=== PATIENT | male | born 1960 | race Caucasian/White ===

== ENCOUNTER 2017-12-11 22:47 | Emergency (ER) | payer BC, OTHER ==
[~2017-12-11] VITALS: Ht 177.8 cm; Wt 95.5 kg
[2017-12-11 22:50] VITALS: TEMP 36.9; Ht 177.8 cm; Wt 95.5 kg
[2017-12-11] MEDS ORDERED: KETOROLAC TROMETHAMINE 30 MG/ML VIAL IV STA (23:04)
[2017-12-11] MEDS ORDERED: HYDROmorphone INJ 1 MG/ML SYR IV STA (23:04)
[2017-12-11] MEDS ORDERED: SODIUM CHLORIDE 0.9% 1000ML 1,000 ML IV STA (23:04)
[2017-12-11] MEDS ORDERED: METOCLOPRAMIDE HCL INJ 5 MG/ML 2 ML VIAL IV STA (23:04)
--- NOTE | 2017-12-11 23:06 | EMERGENCY ROOM VISIT NOTE ---
History Report prepared by Braulio: Pat Yen Under the Supervision of: Dr. Andriy Barrett M.D. First contact with patient: 22:57 Chief Complaint: ABDOMINAL PAIN Stated Complaint: PAIN STOMACH History of Present Illness The patient is a 57 year old male who presents to the Emergency Room with complaints of waxing and waning abdominal pain that started 3 hours ago. The patient rates his pain a 10/10 in severity. The patient reports he ate dinner and then him and his went for a walk. He states 15-20 minutes into the walk he started feeling abdominal pain and had to stop walking. The patient had diarrhea, nausea, and vomiting. He reports there was no blood in his stool. He also states he is having back pain. He denies having any abdominal surgery in the past. The patient reports he had similar symptoms 3 months ago but the pain was gone after 15-20 minutes. Source of History: patient Onset: 3 hours ago Position: abdomen Symptom Intensity: 10/10 Timing: waxes/wanes Associated Symptoms: + nausea, + vomiting, + back pain, + diarrhea Review of Systems See HPI for pertinent positives & negatives. A total of 10 systems reviewed and were otherwise negative. Past Medical & Surgical Hypertension. Family History No pertinent family history Social History Smoking Status: Never Smoker Smokeless Tobacco Use: No Drug Use: none Marital Status: Housing Status: lives with significant other Current/Historical Medications Scheduled Amoxicillin & Pot Clavulanate (Augmentin 875-125 mg), 1 TAB PO BID Lisinopril/Hctz (Prinzide 20-25MG), 0.5 TAB PO DAILY Scheduled PRN Oxycodone Ir (Roxicodone Ir), 1-2 TAB PO Q4H PRN for Severe Pain Allergies Coded Allergies: No Known Allergies (Unverified , 12/12/17) Physical Exam Vital Signs Date Time Temp Pulse Resp B/P (MAP) Pulse Ox O2 Delivery O2 Flow Rate FiO2 12/12/17 03:28 67 18 152/91 98 Room Air 12/12/17 03:06 70 20 146/81 98 Room Air 12/12/17 01:29 68 18 142/88 99 Room Air 12/11/17 23:57 75 20 159/89 98 Room Air 12/11/17 22:50 36.9 66 16 204/103 Room Air Physical Exam GENERAL: Awake, alert, uncomfortable appearing, in no acute distress HENT: Normocephalic, atraumatic. Oropharynx unremarkable. EYES: Normal conjunctiva. Sclera non-icteric. NECK: Supple. No nuchal rigidity. FROM. No JVD. RESPIRATORY: Clear to auscultation. CARDIAC: Regular rate, normal rhythm. Extremities warm and well perfused. Pulses equal. ABDOMEN: Soft, non-distended. No tenderness to palpation. No rebound or guarding. No masses. RECTAL: Deferred. MUSCULOSKELETAL: Chest examination reveals no tenderness. The back is symmetrical on inspection without obvious abnormality. There is no CVA tenderness to palpation. No joint edema. LOWER EXTREMITIES: Calves are equal size bilaterally and non-tender. No edema. No discoloration. NEURO: Normal sensorium. No sensory or motor deficits noted. SKIN: No rash or jaundice noted. Medical Decision & Procedures ER Provider Diagnostic Interpretation: 1 VIEW CHEST X-RAY interpreted by me: No evidence of pneumonia, pneumothorax, or congestion. US RUQ: No cholelithiasis. Negative sonographic Landa sign. No gallbladder wall thickening or biliary dilation. Gallbladder wall polyp measuring 3 mm incidentally noted. Fatty infiltration of the liver without hepatomegaly. No hydronephrosis of the right kidney. Presumed cortical cysts. Parenchymal calcification measuring 2-3 mm incidentally noted. Visualized pancreas within normal limits. CT abd & Pelvis There is scattered diverticula noted in the sigmoid colon with minimal wall thickening. This may be due to incomplete distention. Subtle diverticulitis or colitis in this region is difficult to entirely exclude. The appendix is normal. No evidence for bowel obstruction. No free fluid. There is a 2 x 2 centimeter hypoattenuating structure involving the medial aspect of the mid left kidney which is not definitive for cysts. There is presumed incidental finding. However nonemergent renal ultrasound or dedicated multiphasic cross- sectional imaging is recommended to exclude underlying solid mass lesion in this region. The liver, decompressed gallbladder, pancreas, spleen, adrenal glands are unremarkable. The gallbladder wall polyp noted on previous ultrasound is not appreciated by CT examination. Laboratory Results 12/11/17 23:26 Red Blood Count 4.36, Mean Corpuscular Volume 90.4, Mean Corpuscular Hemoglobin 31.7, Mean Corpuscular Hemoglobin Concent 35.0, Mean Platelet Volume 10.1, Neutrophils (%) (Auto) 85.4, Lymphocytes (%) (Auto) 6.7, Monocytes (%) (Auto) 7.4, Eosinophils (%) (Auto) 0.2, Basophils (%) (Auto) 0.1, Neutrophils # (Auto) 8.22, Lymphocytes # (Auto) 0.65, Monocytes # (Auto) 0.71, Eosinophils # (Auto) 0.02, Basophils # (Auto) 0.01 12/11/17 23:26 Test 12/11/17 23:26 White Blood Count 9.63 K/uL (4.8-10.8) Red Blood Count 4.36 M/uL (4.7-6.1) Hemoglobin 13.8 g/dL (14.0-18.0) Hematocrit 39.4 % (42-52) Mean Corpuscular Volume 90.4 fL (80-100) Mean Corpuscular Hemoglobin 31.7 pg (25-34) Mean Corpuscular Hemoglobin Concent 35.0 g/dl (32-36) Platelet Count 153 K/uL (130-400) Mean Platelet Volume 10.1 fL (7.4-10.4) Neutrophils (%) (Auto) 85.4 % Lymphocytes (%) (Auto) 6.7 % Monocytes (%) (Auto) 7.4 % Eosinophils (%) (Auto) 0.2 % Basophils (%) (Auto) 0.1 % Neutrophils # (Auto) 8.22 K/uL (1.4-6.5) Lymphocytes # (Auto) 0.65 K/uL (1.2-3.4) Monocytes # (Auto) 0.71 K/uL (0.11-0.59) Eosinophils # (Auto) 0.02 K/uL (0-0.5) Basophils # (Auto) 0.01 K/uL (0-0.2) RDW Standard Deviation 41.0 fL (36.4-46.3) RDW Coefficient of Variation 12.4 % (11.5-14.5) Immature Granulocyte % (Auto) 0.2 % Immature Granulocyte # (Auto) 0.02 K/uL (0.00-0.02) Urine Color YELLOW Urine Appearance CLEAR (CLEAR) Urine pH 7.5 (4.5-7.5) Urine Specific [place] 1.017 (1.000-1.030) Urine Protein NEG (NEG) Urine Glucose (UA) NEG (NEG) Urine Ketones NEG (NEG) Urine Occult Blood NEG (NEG) Urine Nitrite NEG (NEG) Urine Bilirubin NEG (NEG) Urine Urobilinogen NEG (NEG) Urine Leukocyte Esterase NEG (NEG) Anion Gap 7.0 mmol/L (3-11) Est Creatinine Clear Calc Drug Dose 106.1 ml/min Estimated GFR () 109.7 Estimated GFR (Non- 94.7 BUN/Creatinine Ratio 22.0 (10-20) Calcium Level 8.5 mg/dl (8.5-10.1) Total Bilirubin 0.4 mg/dl (0.2-1) Direct Bilirubin mg/dl (0-0.2) Aspartate Amino Transf (AST/SGOT) 20 U/L (15-37) Alanine Aminotransferase (ALT/SGPT) 20 U/L (12-78) Alkaline Phosphatase 63 U/L (45-117) Total Protein 7.8 gm/dl (6.4-8.2) Albumin 3.8 gm/dl (3.4-5.0) Lipase 143 U/L (73-393) Chemistry Specimen Hemolysis Labs reviewed by ED physician. Medications Administered Medications (Trade) Dose Ordered Sig/Noe Route Start Time Stop Time Status Last Admin Dose Admin Sodium Chloride 1,000 ml @ 999 mls/hr Q1H1M STAT IV 12/11/17 23:04 12/12/17 00:04 DC 12/11/17 23:24 999 MLS/HR Metoclopramide HCl (Reglan Inj) 10 mg NOW STAT IV 12/11/17 23:04 12/11/17 23:07 DC 12/11/17 23:23 10 MG Hydromorphone HCl (Dilaudid Inj) 1 mg NOW STAT IV 12/11/17 23:04 12/11/17 23:07 DC 12/11/17 23:23 1 MG Ketorolac Tromethamine (Toradol Inj) 30 mg NOW STAT IV 12/11/17 23:04 12/11/17 23:07 DC 12/11/17 23:23 30 MG Miscellaneous Medication (Gi Cocktail) 24 ml NOW STAT PO 12/12/17 00:32 12/12/17 00:34 DC 12/12/17 00:32 24 ML Famotidine (Pepcid Tab) 20 mg NOW STAT PO 12/12/17 00:32 12/12/17 00:34 DC 12/12/17 00:51 20 MG Sucralfate (Carafate Tab) 1 gm NOW ONCE PO 12/12/17 00:45 12/12/17 00:46 DC 12/12/17 00:51 1 GM Lidocaine HCl (Viscous Lidocaine 2% Soln) 20 ml STK-MED ONCE .ROUTE 12/12/17 00:47 12/12/17 00:48 DC 12/12/17 00:50 20 ML Al Hydroxide/Mg Hydroxide (Maalox Susp) 30 ml STK-MED ONCE .ROUTE 12/12/17 00:47 12/12/17 00:48 DC 12/12/17 00:50 30 ML ECG Per My Interpretation Indication: abdominal pain Rate (beats per minute): 65 Rhythm: normal sinus Findings: other (no ST elevation or depression, normal EKG) ED Course 2256: Past medical records reviewed. The patient was evaluated in room C4. A complete history and physical examination was performed. 2304: Toradol Inj 30 mg IV, Dilaudid Inj 1 mg IV, Reglan Inj 10 mg IV, Sodium Chloride 1000 ml @ 999 mls/hr IV. 0032: Pepcid Tab 20 mg PO, Gi cocktail 24 ml PO. 0045: Carafate Tab 1 gm PO. 0047: Maalox Susp 30 ml .ROUTE, Lidocaine HCl 20 ml .ROUTE. Medical Decision Differential diagnosis: Etiologies such as appendicitis, diverticulitis, PUD, biliary pathology, UTI, pancreatitis, obstruction, mesenteric ischemia, aortic pathology, infections, inflammatory bowel disease, renal colic, as well as others were entertained. This is a 57-year-old male who presents the emergency department complaining of abdominal pain. Patient appears acutely uncomfortable. The pain started after he ate this evening. He was given Dilaudid, normal saline bolus Toradol and Zofran. Serial abdominal examinations were performed and the patient in the emergency department and at no time to the patient exhibited a surgical abdomen. Patient was sent for chest x-ray as well as a right upper quadrant ultrasound however this did not show any evidence of acute process. In addition the patient has a normal CBC renal profile liver profile normal lipase. He also has a normal urine. Patient was given a GI cocktail, Pepcid and Carafate. Using shared medical decision making with the patient using all the above laboratory work along with his ultrasound and physical examinations the patient and his would like to proceed with a CAT scan of the abdomen and pelvis. This was concerning for an early diverticulitis therefore placed the patient on Augmentin. In the meantime I recommended the patient have a clear liquid diet for the next 48 hours and also in a 5 mL's of Maalox before every meal and at bedtime. I also strongly recommended that the patient follow- up with his PCP for this kidney cyst. I also strongly recommended that the patient obtain a colonoscopy from gastroenterology. Both patient and are in agreement with the treatment plan. Medication Reconcilliation Current Medication List: was personally reviewed by me Impression Primary Impression: Abdominal pain Additional Impressions: Diverticulitis Kidney cysts Scribe Attestation The scribe's documentation has been prepared under my direction and personally reviewed by me in its entirety. I confirm that the note above accurately reflects all work, treatment, procedures, and medical decision making performed by me. Departure Information Dispostion Home / Self-Care Prescriptions Oxycodone Ir (Roxicodone Ir) 5 Mg Tab 1-2 TAB PO Q4H Y for Severe Pain, #12 TAB Prov: Andriy Barrett MD 12/12/17 Amoxicillin & Pot Clavulanate (Augmentin 875-125 mg) 1 Tab Tab 1 TAB PO BID for 10 Days, #20 TAB Prov: Andriy Barrett MD 12/12/17 Referrals No Doctor, Assigned (PCP) Patient Instructions My [facility] Problem Qualifiers Primary Impression: Abdominal pain Abdominal location: unspecified location Qualified Codes: R10.9 - Unspecified abdominal pain
[2017-12-11 23:40] LABS: BASO % 0.1 %; BASO ABS # 0.01 K/uL (0-0.2); EOS % 0.2 %; EOS ABS # 0.02 K/uL (0-0.5); HEMATOCRIT 39.4 % (42-52); HEMOGLOBIN 13.8 g/dL (14.0-18.0); IG# 0.02 K/uL (0.00-0.02); LYMPH % 6.7 %; LYMPH ABS # 0.65 K/uL (1.2-3.4); MEAN CELL VOLUME 90.4 fL (80-100); MEAN CORPUSCULAR HEMOGLOBIN 31.7 pg (25-34); MEAN PLATELET VOLUME 10.1 fL (7.4-10.4); MONO % 7.4 %; MONO ABS # 0.71 K/uL (0.11-0.59); NEUT % 85.4 %; NEUT ABS # 8.22 K/uL (1.4-6.5); PLATELET COUNT 153 K/uL (130-400); RED CELL DISTRIBUTION WIDTH CV 12.4 % (11.5-14.5); WHITE BLOOD COUNT 9.63 K/uL (4.8-10.8)
[2017-12-12 00:14] LABS: ALBUMIN 3.8 gm/dl (3.4-5.0); CALCIUM 8.5 mg/dl (8.5-10.1); CREATININE 0.88 mg/dl (0.60-1.40); POTASSIUM 3.8 mmol/L (3.5-5.1); TOTAL PROTEIN 7.8 gm/dl (6.4-8.2)
[2017-12-12] MEDS ORDERED: LISI20TA55 PO (00:28)
[2017-12-12] MEDS ORDERED: FAMOTIDINE 20 MG TAB PO STA (00:32)
[2017-12-12] MEDS ORDERED: GI COCKTAIL PO STA (00:32)
[2017-12-12] MEDS ORDERED: SUCRALFATE 1 GM TAB PO ONE (00:45)
[2017-12-12] MEDS ORDERED: ALUMINUM/MAGNESIUM SUSP 30 ML UDC ONE (00:47)
[2017-12-12] MEDS ORDERED: LIDOCAINE HCL 2% VISC SOLN 20 ML UDC ONE (00:47)
[2017-12-12] MEDS ORDERED: OPTIRAY 320 IV PRN (01:00)
[2017-12-12] MEDS ORDERED: AMOXICILLIN/CLAVULANATE TAB 875 MG TAB PO ONE (04:30)
[2017-12-12] MEDS ORDERED: AMOX875T PO (04:38)
[2017-12-12] MEDS ORDERED: OXYC1TAB3 PO (04:38)
[2017-12-12] MEDS ORDERED: OXYCODONE IR HOME PACK PO ONE (04:45)
[2017-12-12 04:51] VITALS: BP 146/81; PULSE 88; O2SAT 98
--- NOTE | 2017-12-12 07:42 | DIAGNOSTIC IMAGING REPORT ---
ABDOMEN AND PELVIS CT WITH IV AND ORAL CONTRAST CT DOSE: 519.60 mGy.cm HISTORY: Pt c/o diffuse abd pain TECHNIQUE: Multiaxial CT images of the abdomen and pelvis were performed following the use of intravenous and oral contrast. A dose lowering technique was utilized adhering to the principles of ALARA. COMPARISON STUDY: None. FINDINGS: The lung bases are essentially clear. No suspicious lytic or blastic osseous lesions. No pneumoperitoneum. No pneumatosis. The liver, gallbladder, spleen, pancreas, and adrenal glands are unremarkable. No hydronephrosis. A 2.2 cm left renal hypodense lesion. Contains a punctate internal calcification. This does not clearly represent a simple cyst. A few additional hypodense lesions within the kidneys are noted and favor cysts. No retroperitoneal lymphadenopathy. The bladder is unremarkable. Colonic diverticulosis. No bowel wall thickening or obstruction. Normal appendix. IMPRESSION: 1. No bowel wall thickening or obstruction. 2. Colonic diverticulosis. 3. Normal appendix. 4. A 2.2 cm hypodense lesion within the left kidney which does not clearly represent a simple cyst. Follow-up nonemergent renal ultrasound or MRI is recommended to exclude the possibility of a renal mass. Electronically signed by: Akbar Melendez M.D. 12/12/2017 7:41 AM Dictated Date/Time: 12/12/2017 7:35 AM
--- NOTE | 2017-12-12 08:23 | DIAGNOSTIC IMAGING REPORT ---
CHEST ONE VIEW PORTABLE HISTORY: Generalized abdominal pain. COMPARISON: None. FINDINGS: The lungs are clear. Cardiac silhouette is normal in size. No pleural effusions. No pneumothorax. IMPRESSION: No acute process. Electronically signed by: Akbar Melendez M.D. 12/12/2017 8:22 AM Dictated Date/Time: 12/12/2017 8:21 AM
--- NOTE | 2017-12-12 08:29 | DIAGNOSTIC IMAGING REPORT ---
ABDOMINAL ULTRASOUND, RIGHT UPPER QUADRANT HISTORY: Right upper quadrant abdominal pain.. COMPARISON: None. FINDINGS: Pancreas: Obscured by overlying bowel gas. Liver: Unremarkable. Gallbladder: No gallbladder wall thickening. No gallstones. A few small polyps with the largest measuring 3 mm. CBD: 4 mm. Right kidney: No hydronephrosis. A few small cysts. IMPRESSION: 1. A few small gallbladder polyps. No gallbladder wall thickening. No gallstones. 2. Right renal cysts. Electronically signed by: Akbar Melendez M.D. 12/12/2017 8:27 AM Dictated Date/Time: 12/12/2017 8:26 AM
== END 2017-12-12 04:50 | disposition home or self-care (01) ==
LOC: C.EDB 22:48 → C.EDA 12-12 04:50
DX: K57.92 Diverticulitis of intestine, part unspecified, without perforation or abscess without bleeding (principal); N28.1 Cyst of kidney, acquired; R11.2 Nausea with vomiting, unspecified; R10.9 Unspecified abdominal pain; Z79.899 Other long term (current) drug therapy; I10 Essential (primary) hypertension